=== PATIENT | female | born 1965 | race Caucasian/White ===

== ENCOUNTER 2023-04-18 12:26 | Emergency (ER) | payer MEDICARE, SELFPAY ==
[2023-04-18 12:35] VITALS: BP 184/15; PULSE 102; RESP 16; TEMP 36.7; O2SAT 95; BMI 25.8
--- NOTE | 2023-04-18 14:01 | SWNOTE1 ---
SW met with pt in ER waiting room. She was brought in by ambulance due to her leg having a rash on it of some kind. She had concerns about getting home. She states she has no family/friends to get her. SW asked if she had funds to pay for a taxi to get home and she stated yes she has a credit card. SW let her know that we cannot set up anything right now since we are unsure of when she will be discharged. Pt has not been seen yet by the doctor. [facility] mentioned trips, but it is likely they will not have availability by the time pt is discharged, IF she is dc from ER. SW let pt know to let ER doctor/nurse know that SW spoke with her and will need taxi ride home.
--- NOTE | 2023-04-18 14:58 | SWNOTE1 ---
SW did updates company secretary in ER that pt will need ride home and does have funds, credit card, to pay for taxi.
--- NOTE | 2023-04-18 15:38 | ED.SKABFB1 ---
HPI - Skin/Abscess/Foreign Bdy General Chief complaint: Skin/Abscess/Foreign Body Stated complaint: REDNESS R LEG/NAUSEA Time Seen by Provider: 04/18/23 15:38 Source: patient Mode of arrival: ambulance Limitations: no limitations History of Present Illness HPI narrative: Patient says emergency department complaining of right lower extremity rash. She states she was out spraying the wheeze and does not think she got into poison jayme. However she started noticing some swelling, erythema, and seepage from the right medial distal tibia. She denies any fever, or chills. She denies any trauma. She denies any paresthesias.She is here because the redness is getting worse. Patient is a diabetic. She states she was putting a compression dressing on it and when she took it off today she noticed that the rash was worse she panicked and called 911. she denies any chest pain, shortness of breath. Related Data Previous Rx's Medication Instructions Recorded cephalexin 500 mg capsule 500 mg PO Q8H 10 days #30 caps 04/18/23 mupirocin 2 % topical ointment 1 applic topical TID #15 grams 04/18/23 Allergies Allergy/AdvReac Type Severity Reaction Status Date / Time No Known Drug Allergies Allergy Verified 04/18/23 12:42 Review of Systems ROS Status of ROS 10 or more systems reviewed and unremarkable except as noted in history and below Exam Narrative Exam Narrative: Nurses notes and vital signs reviewed and patient is not hypoxic. General: Nontoxic, Well-appearing and in no apparent distress. Skin: Warm, dry, no pallor noted. Right distal tibia medial aspect erythema with honey Crusted scab with 4 cm area of erythema with minimal proximal streaking. There are no palpable cords. There is no calf asymmetry. Negative Homans sign. Consistent with cellulitis. Head: Normocephalic, atraumatic. Neck: Supple, non-tender. Eye: Pupils are equal, round and EOMI. No scleral icterus. Ears, Nose, Mouth, and Throat: TM clear, no posterior oropharynx erythema or nasal mucosal hypertrophy, uvula is mid-line Oral mucosa is moist Cardiovascular: Regular Rate and Rhythm without murmur, gallop or rub. Respiratory: No accessory muscle use or respiratory distress. Lungs are clear to auscultation, no wheezing, rales or rhonchi Chest Wall: no tenderness Back: No midline thoracic or lumbar vertebral tenderness. No CVA tenderness Musculoskeletal: normal ROM, no calf or popliteal tenderness,. DP +2, TP +2, capillary refill is brisk. GI: Abdomen is soft, non-distended. Normal bowel sounds. No masses appreciated. No tenderness to palpation. No rebound, guarding, or rigidity noted. Neurological: A&O x4. No cranial nerve dysfunction observed. No truncal ataxia. Moves all extremities. Sensation intact. Psychiatric: Cooperative and interactive. Normal mood and affect. Constitutional Vital Signs - 24 hr 04/18/23 12:35 Temperature 98.1 F Pulse Rate [Monitor] 102 H Respiratory Rate 16 Blood Pressure [Left Arm] 184/15 H Pulse Oximetry 95 Oxygen Delivery Method Room Air Course Vital Signs Vital signs: Vital Signs Temperature 98.1 F 04/18/23 12:35 Pulse Rate 102 H 04/18/23 12:35 Respiratory Rate 16 04/18/23 12:35 Blood Pressure 184/15 H 04/18/23 12:35 Pulse Oximetry 95 04/18/23 12:35 Oxygen Delivery Method Room Air 04/18/23 12:35 Temperature 98.1 F 04/18/23 12:35 Pulse Rate 102 H 04/18/23 12:35 Respiratory Rate 16 04/18/23 12:35 Blood Pressure 184/15 H 04/18/23 12:35 Pulse Oximetry 95 04/18/23 12:35 Oxygen Delivery Method Room Air 04/18/23 12:35 MDM - Skin/Abscess/Foreign Bdy MDM Narrative Medical decision making narrative: Patient's rash did not start with what is typical of poison jayme. Patient is a diabetic. We advised we will initially treat for cellulitis with Keflex and mupirocin. She is follow-up with her primary care doctor in the morning for reevaluation. At this time the patient is without objective evidence of an acute process requiring hospitalization or inpatient management. The patient has remained hemodynamically stable. No additional indication for emergent studies at this time. I answered all questions. Discussed discharge instructions including standard anticipatory guidance and what should prompt a return to the emergency department, including if they get worse are not getting better or develops any new or concerning symptoms. I've given them specific time frame in which to follow-up, and who to follow-up with. The patient demonstrates understanding. Patient is nontoxic and stable for discharge with outpatient follow-up. This note was created with the assistance of a speech recognition program. Although the intention is to generate documents that actually reflects the content of the visit, no guarantees can be provided that every mistake has been identified and corrected by editing. Differential Diagnosis Differential diagnosis: Likely abscess of skin or subcutaneous tissue, cellulitis, impetigo and contact dermatitis Discharge Plan Discharge Chief Complaint: Skin/Abscess/Foreign Body Clinical Impression: Cellulitis Patient Disposition: Home, Self-Care Time of Disposition Decision: 15:52 Condition: Good Mode of Transportation: Private Vehicle Prescriptions / Home Meds: New mupirocin 2 % ointment 1 applic topical TID Qty: 15 0RF cephalexin 500 mg capsule 500 mg PO Q8H 10 Days Qty: 30 0RF Instructions: Cellulitis (ED) Stand Alone Forms: Portal Instructions Referrals: KRISTA RAE [Primary Care Provider] - 1 week
== END 2023-04-18 16:46 | disposition home or self-care (01) ==
PROVIDERS: Emergency Provider Emergency Medicine; PCP Family Medicine
DX: L03.115 Cellulitis of right lower limb (principal); E11.9 Type 2 diabetes mellitus without complications
CPT/HCPCS: 99283

== ENCOUNTER 2023-06-02 12:00 | Emergency (ER) | payer MEDICARE, SELFPAY ==
[2023-06-02 12:15] VITALS: BP 166/96; PULSE 89; RESP 20; TEMP 37; O2SAT 96; BMI 30.8
--- NOTE | 2023-06-02 12:21 | ED.GENADUL1 ---
HPI - General Adult General Chief complaint: Skin/Abscess/Foreign Body Stated complaint: SCAB ON R LEG/PAIN Time Seen by Provider: 06/02/23 12:21 Source: patient Mode of arrival: Wheelchair Limitations: no limitations History of Present Illness HPI narrative: Presenting to us with a redness of the right leg that is a problem for the second time within a month, she was evaluated for cellulitis almost a month ago when she was treated with Keflex and she got better but today she is presenting after the redness started happening again she already had an underlying dry skin She is denying any recent trauma or injury Related Data Previous Rx's Medication Instructions Recorded alclometasone 0.05 % topical cream 1 applic topical BID #45 grams 06/02/23 cephalexin 500 mg capsule 500 mg PO Q8H #15 caps 06/02/23 Allergies Allergy/AdvReac Type Severity Reaction Status Date / Time No Known Drug Allergies Allergy Verified 04/18/23 12:42 Review of Systems ROS Status of ROS 10 or more systems reviewed and unremarkable except as noted in history and below Exam Narrative Exam Narrative: Nurses notes and vital signs reviewed and patient is not hypoxic. General: Well-appearing and in no apparent distress. Skin: Warm, dry, no pallor noted. No rash. Head: Normocephalic, atraumatic. Neck: Supple, non-tender. Eye: Pupils are equal, round and EOMI. No scleral icterus. Ears, Nose, Mouth, and Throat: TM are clear, no nasal mucosal hypertrophy. Oral mucosa is moist, no posterior oropharynx erythema, uvula is mid-line Cardiovascular: Regular Rate and Rhythm without murmur, gallop or rub. Respiratory: No accessory muscle use or respiratory distress. Lungs are clear to auscultation, no wheezing, rales or rhonchi Chest Wall: no tenderness Back: No midline thoracic or lumbar vertebral tenderness. No CVA tenderness Musculoskeletal: normal ROM, no calf or popliteal tenderness, on the lower third of the right leg the patient have a dry skin that is crusty especially medially with mild redness no hotness. GI: Abdomen is soft, non-distended. Normal bowel sounds. No masses appreciated. No tenderness to palpation. No rebound, guarding, or rigidity noted. Neurological: A&O x4. No cranial nerve dysfunction observed. No truncal ataxia. Moves all extremities. Sensation intact. Psychiatric: Cooperative and interactive. Normal mood and affect. Constitutional Vital Signs, click to edit/add: Last Vital Signs Temp 98.6 F 06/02/23 12:15 Pulse 89 06/02/23 12:15 Resp 20 06/02/23 12:15 BP 166/96 H 06/02/23 12:15 Pulse Ox 96 06/02/23 12:15 O2 Del Method Room Air 06/02/23 12:15 Course Vital Signs Vital signs: Vital Signs Temperature 98.6 F 06/02/23 12:15 Pulse Rate 89 06/02/23 12:15 Respiratory Rate 20 06/02/23 12:15 Blood Pressure 166/96 H 06/02/23 12:15 Pulse Oximetry 96 06/02/23 12:15 Oxygen Delivery Method Room Air 06/02/23 12:15 Temperature 98.6 F 06/02/23 12:15 Pulse Rate 89 06/02/23 12:15 Respiratory Rate 20 06/02/23 12:15 Blood Pressure 166/96 H 06/02/23 12:15 Pulse Oximetry 96 06/02/23 12:15 Oxygen Delivery Method Room Air 06/02/23 12:15 Medical Decision Making MDM Narrative Medical decision making narrative: Although I cannot rule out any underlying mild cellulitis specially with the patient explaining that the redness got worse over the last few days the patient was treated with Keflex for the next 5 days in addition to using low-dose steroid cream for underlying dermatitis The patient referred to podiatry as outpatient The patient is to follow up with primary care physician in next 2-3 days or to return to the emergency department should any of the signs or symptoms worsen or new symptoms develop. The patient agrees with the following Diagnosis and Treatment plan and the patient will be discharged home. Discharge Plan Discharge Chief Complaint: Skin/Abscess/Foreign Body Clinical Impression: Dermatitis Patient Disposition: Home, Self-Care Time of Disposition Decision: 12:31 Condition: Good Mode of Transportation: Private Vehicle Prescriptions / Home Meds: New alclometasone 0.05 % cream 1 applic topical BID Qty: 45 0RF Rx Instructions: for 7 days cephalexin 500 mg capsule 500 mg PO Q8H Qty: 15 0RF Instructions: Dermatitis (ED) Stand Alone Forms: Portal Instructions Referrals: Stacey Wilson MD [Primary Care Provider] - 1 week Discharge Date/Time: 06/02/23 12:48
--- NOTE | 2023-06-02 12:47 | PC.NURSE ---
d/c instructions complete, pt verbalized understanding. prescriptions sent to pt's pharmacy of choice and gait steady to exit
== END 2023-06-02 12:48 | disposition home or self-care (01) ==
PROVIDERS: Emergency Provider Emergency Medicine; PCP Family Medicine
DX: L30.9 Dermatitis, unspecified (principal)
CPT/HCPCS: 99283